=== PATIENT | female | born 1940 | race Caucasian/White ===

== ENCOUNTER 2021-07-30 07:53 | Emergency (ER) | payer MEDICARE, OTHER ==
[~2021-07-30] VITALS: Ht 160 cm; Wt 81.8 kg
[~2021-07-30 07:53] MED LIST: AMLO5TAB4 PO; ASPI-886 PO; CALC200T3 PO; CALC215T PO; CEFD300C PO; CHLO50TA PO; CITA20TA6 PO; CLOP75TA PO; DOCU240C13 PO; DONE10TA7 PO; FLUT9.9S NS; SITA100T PO; SITA50TA PO
[2021-07-30] MEDS ORDERED: IV NORMAL SALINE 1000ML BAG 1,000 ML IV SCH (08:30)
--- NOTE | 2021-07-30 08:30 | EKG ---
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
--- NOTE | 2021-07-30 08:32 | PHYS DOC ---
Past Medical History Past Surgical History: Other Additional Past Surgical Histo: unable to obtain Smoking Status: Never Smoker Alcohol Use: None General Adult EDM: Chief Complaint: ABDOMINAL PAIN HPI: HPI: Patient is a 80 year old from a senior care with a history of dementia comes in with epigastric pain nausea and vomiting. Patient is a poor historian. Review of Systems: Review of Systems: History is very limited due to patient's dementia. Patient unable to give a reliable history changes or answers multiple times. Constitutional: Denies fever or chills. [] Eyes: Denies change in visual acuity. [] HENT: Denies nasal congestion or sore throat. [] Respiratory: Denies cough or shortness of breath. [] Cardiovascular: Denies chest pain or edema. [] GI: Epigastric discomfort and nausea vomiting. No bowel changes : Denies dysuria. [] Musculoskeletal: Denies back pain or joint pain. [] Integument: Denies rash. [] Neurologic: Denies headache, focal weakness or sensory changes. [] Endocrine: Denies polyuria or polydipsia. [] Lymphatic: Denies swollen glands. [] Psychiatric: Denies depression or anxiety. [] Heart Score: C/O Chest Pain: No Risk Factors: Risk Factors: DM, Current or recent (<one month) smoker, HTN, HLP, family history of CAD, obesity. Risk Scores: Score 0 - 3: 2.5% MACE over next 6 weeks - Discharge Home Score 4 - 6: 20.3% MACE over next 6 weeks - Admit for Clinical Observation Score 7 - 10: 72.7% MACE over next 6 weeks - Early Invasive Strategies Current Medications: Current Medications Medications (Trade) Dose Ordered Sig/[facility] Start Time Stop Time Status Last Admin Dose Admin Morphine Sulfate (Morphine Sulfate) 2 mg 1X ONCE 07/30/21 08:45 07/30/21 08:46 Ondansetron HCl (Zofran) 4 mg 1X ONCE 07/30/21 08:45 07/30/21 08:46 Sodium Chloride 1,000 ml @ 100 mls/hr Q10H 07/30/21 08:30 07/30/21 18:29 Allergies: Allergies: Allergies Coded Allergies Type Severity Reaction Last Updated Verified desipramine Allergy Intermediate 07/30/21 Yes naproxen Allergy Intermediate 07/30/21 Yes rofecoxib Allergy Intermediate 07/30/21 Yes simvastatin Allergy Intermediate 07/30/21 Yes Physical Exam: PE: Constitutional: Well developed, well nourished, no acute distress, non-toxic appearance. [] HENT: Normocephalic, atraumatic, bilateral external ears normal, oropharynx moist, no oral exudates, nose normal. [] Eyes: PERRLA, EOMI, conjunctiva normal, no discharge. [] Neck: Normal range of motion, no tenderness, supple, no stridor. [] Cardiovascular:Heart rate regular rhythm, no murmur [] Lungs & Thorax: Bilateral breath sounds clear to auscultation [] Abdomen: Abdomen is distended. No evidence of ascites present. Hyperactive bowel sounds. Tender in the epigastric and right upper quadrant no rebound tenderness. No palpable mass. Skin: Warm, dry, no erythema, no rash. [] Back: No tenderness, no CVA tenderness. [] Extremities: No tenderness, no cyanosis, no clubbing, ROM intact, no edema. [] Neurologic: Alert and oriented X 3, normal motor function, normal sensory function, no focal deficits noted. [] Psychologic: Affect normal, judgement normal, mood normal. [] Current Patient Data: Labs: Laboratory Tests Test 07/30/21 08:30 07/30/21 14:38 White Blood Count 10.8 x10^3/uL Red Blood Count 4.05 x10^6/uL Hemoglobin 11.3 g/dL Hematocrit 34.3 % Mean Corpuscular Volume 85 fL Mean Corpuscular Hemoglobin 28 pg Mean Corpuscular Hemoglobin Concent 33 g/dL Red Cell Distribution Width 14.6 % Platelet Count 218 x10^3/uL Neutrophils (%) (Auto) 86 % Lymphocytes (%) (Auto) 7 % Monocytes (%) (Auto) 5 % Eosinophils (%) (Auto) 1 % Basophils (%) (Auto) 1 % Neutrophils # (Auto) 9.3 x10^3/uL Lymphocytes # (Auto) 0.7 x10^3/uL Monocytes # (Auto) 0.6 x10^3/uL Eosinophils # (Auto) 0.1 x10^3/uL Basophils # (Auto) 0.1 x10^3/uL Sodium Level 141 mmol/L Potassium Level 4.2 mmol/L Chloride Level 103 mmol/L Carbon Dioxide Level 29 mmol/L Anion Gap 9 Blood Urea Nitrogen 29 mg/dL Creatinine 1.5 mg/dL Estimated GFR (Cockcroft-Gault) 33.6 BUN/Creatinine Ratio 19 Glucose Level 200 mg/dL Calcium Level 8.9 mg/dL Total Bilirubin 0.3 mg/dL Aspartate Amino Transf (AST/SGOT) 17 U/L Alanine Aminotransferase (ALT/SGPT) 22 U/L Alkaline Phosphatase 145 U/L Troponin I High Sensitivity 26 ng/L Total Protein 6.4 g/dL Albumin 3.2 g/dL Albumin/Globulin Ratio 1.0 Lipase 212 U/L Urine Collection Type Unknown Urine Color (Auto) Light yellow Urine Turbidity Clear Urine pH (Auto) 6.5 Urine Specific [place] 1.016 Urine Protein (Auto) Negative mg/dL Urine Glucose (Auto)(UA) Negative mg/dL Urine Ketones (Auto) Negative mg/dL Urine Blood (Auto) Negative Urine Nitrite (Auto) Negative Urine Bilirubin (Auto) Negative Urine Urobilinogen (Auto) Normal mg/dL Urine Leukocyte Esterase (Auto) Negative Urine RBC 0 /HPF Urine WBC Occ /HPF Urine Bacteria Many /HPF Current Medications Medications (Trade) Dose Ordered Sig/Juliano Route PRN Reason Start Time Stop Time Status Last Admin Dose Admin Sodium Chloride 1,000 ml @ 100 mls/hr Q10H IV 07/30/21 08:30 07/30/21 18:29 07/30/21 09:23 Ondansetron HCl (Zofran) 4 mg 1X ONCE IVP 07/30/21 08:45 07/30/21 08:46 DC 07/30/21 09:24 Morphine Sulfate (Morphine Sulfate) 2 mg 1X ONCE IVP 07/30/21 08:45 07/30/21 08:46 DC 07/30/21 09:24 Vital Signs: Vital Signs Date Time Temp Pulse Resp B/P (MAP) Pulse Ox O2 Delivery O2 Flow Rate FiO2 07/30/21 07:53 97.5 67 18 226/97 (140) 93 Room Air 97.5 EKG: EKG: [] Patient is a normal sinus rhythm heart rate of 61 QTC 465 TX interval 180. Patient has Q waves in the anterior leads in V1 V2. Otherwise normal EKG Radiology/Procedures: Radiology/Procedures: [] IMPRESSION: 1. No acute abnormality in the abdomen and pelvis. 2. Colonic diverticulosis. Small hiatal hernia. 3. Left peripelvic renal cyst. 4. Coronary artery calcifications and moderate calcified atherosclerosis of the abdominal aorta. 5. Small fat-containing umbilical hernia. 6. 10 cm fat-containing mass in the left adductor musculature, likely a lipoma but incompletely imaged. 7. L2 and T11 compression fractures with up to 40 percent height loss and no retropulsion, age-indeterminate but likely old. Course & Med Decision Making: Course & Med Decision Making Pertinent Labs and Imaging studies reviewed. (See chart for details) [] Patient is hemodynamically stable. Patient has not vomited since being in the ER and being observed. CT scan was reviewed. Showed in all age- indeterminate compression fracture in the lumbar spine but no acute abdominal processes. Patient's labs were reviewed Don Disclaimer: Don Disclaimer: This electronic medical record was generated, in whole or in part, using a voice recognition dictation system. Departure Departure Referrals: BETITO FRANCO DO (PCP) Scripts Ondansetron (ONDANSETRON ODT) 4 Mg Tab.rapdis 4 MG PO BID PRN for NAUSEA/VOMITING for 4 Days, #8 TAB Prov: NIRMALA IRBY DO 07/30/21 NIRMALA IRBY DO Jul 30, 2021 08:32
[2021-07-30] MEDS ORDERED: MORPHINE SULFATE 2 MG/ML INJ. IVP ONE (08:45)
[2021-07-30] MEDS ORDERED: ONDANSETRON PF 4 MG/2 ML VIAL. IVP ONE (08:45)
[2021-07-30 08:56] LABS: BASO # 0.1 x10^3/uL (0.0-0.2); BASO % 1 % (0-3); EOS # 0.1 x10^3/uL (0.0-0.7); EOS % 1 % (0-3); HEMATOCRIT 34.3 % (36.0-47.0); HEMOGLOBIN 11.3 g/dL (12.0-15.5); LYMPH # 0.7 x10^3/uL (1.0-4.8); LYMPH % 7 % (24-48); MEAN CORPUSCULAR HEMOGLOBIN 28 pg (25-35); MEAN CORPUSCULAR HGB CONC 33 g/dL (31-37); MEAN CORPUSCULAR VOLUME 85 fL (79-100); MONO # 0.6 x10^3/uL (0.0-1.1); MONO % 5 % (0-9); NEUT # 9.3 x10^3/uL (1.8-7.7); NEUT % 86 % (31-73); PLATELET COUNT 218 x10^3/uL (140-400); RED BLOOD COUNT 4.05 x10^6/uL (3.50-5.40); RED CELL DISTRIBUTION WIDTH 14.6 % (11.5-14.5); WHITE BLOOD COUNT 10.8 x10^3/uL (4.0-11.0)
[2021-07-30 09:14] LABS: CALCIUM 8.9 mg/dL (8.5-10.1); CREATININE 1.5 mg/dL (0.6-1.0); GFR 33.6; POTASSIUM 4.2 mmol/L (3.5-5.1)
[2021-07-30 09:20] LABS: ALBUMIN 3.2 g/dL (3.4-5.0); TOTAL BILIRUBIN 0.3 mg/dL (0.2-1.0); TOTAL PROTEIN 6.4 g/dL (6.4-8.2)
--- NOTE | 2021-07-30 15:22 | RAD ---
Exam: CT abdomen/pelvis without intravenous contrast Indication: Abdominal pain Comparison: None Technique: Helical CT imaging performed of the abdomen and pelvis without the use of intravenous cont rast. Sagittal and coronal reformats were obtained. One or more of the following individualized dose reduction techniques were utilized for this examinat ion: 1. Automated exposure control 2. Adjustment of the mA and/or kV according to patient size 3. Use of iterative reconstruction technique. Findings: Inherently limited evaluation without intravenous contrast. Lower chest: There is extensive motion artifact. Mild opacities in the posterior lower lobes, likely atelectasis. There is calcified granuloma in the left lower lobe. The heart is normal in size. There are coronary artery calcifications. Calcified left hilar lymph nodes. Liver: There is an 8 mm hypodensity in the liver, too small to characterize. Gallbladder/Biliary Tree: Normal. Pancreas: Normal. Spleen: Normal. Adrenal Glands: Normal. Kidneys/Ureters/Bladder: Kidneys are normal in size. No nephrolithiasis. There are multiple left berry pelvic cysts. No hydronephrosis. Ureters are normal. The bladder is normal Reproductive Organs: Uterus is present. No adnexal mass. Stomach, small bowel, and colon: Small hiatal hernia. There is a duodenal diverticulum. No small adore l obstruction. Appendix is normal. There is colonic diverticulosis. Vasculature: The abdominal aorta is normal in caliber. Mild calcified aortoiliac atherosclerosis. Lymph Nodes: No lymphadenopathy. Peritoneum and retroperitoneum: No free fluid or free air. Bones: No acute osseous abnormality. There is an L2 compression fracture with 40 percent height loss in the T11 compression fracture with 30 percent height loss. No retropulsion of cortex. Moderate dege nerative disc disease. Mild levoscoliosis of the lumbar spine. Miscellaneous: Small fat-containing umbilical hernia. There is a 10.0 x 4.0 cm fat-containing mass in the left adductor musculature, likely a lipoma but incompletely imaged. IMPRESSION: 1. No acute abnormality in the abdomen and pelvis. 2. Colonic diverticulosis. Small hiatal hernia. 3. Left peripelvic renal cyst. 4. Coronary artery calcifications and moderate calcified atherosclerosis of the abdominal aorta. 5. Small fat-containing umbilical hernia. 6. 10 cm fat-containing mass in the left adductor musculature, likely a lipoma but incompletely imag ed. 7. L2 and T11 compression fractures with up to 40 percent height loss and no retropulsion, age-indete rminate but likely old. Electronically signed by: Nelda Pina MD (07/30/2021 3:20 PM) [id number]
[2021-07-30 15:55] LABS: BACTERIA,URINE MANY /HPF (0-FEW); RBC,URINE 0 /HPF (0-2); WBC,URINE OCC /HPF (0-4)
[2021-07-30] MEDS ORDERED: ONDA4TAB12 PO (16:32)
[2021-07-30 18:04] VITALS: BP 198/79
== END 2021-07-30 19:45 ==
LOC: MERGE 07:53 → ER 07:53
DX: R10.13 Epigastric pain (principal); R11.2 Nausea with vomiting, unspecified; F03.90 Unspecified dementia, unspecified severity, without behavioral disturbance, psychotic disturbance, mood disturbance, and anxiety; Z88.5 Allergy status to narcotic agent; Z88.8 Allergy status to other drugs, medicaments and biological substances
CPT/HCPCS: 36415; 80053; 81001; 83690; 84484; 85025; 93005; 96361; 96374; 96375; 99285; J2270; J2405; J7030